=== PATIENT | female | born 1980 | race Hispanic/Latino ===

== ENCOUNTER 2022-10-18 05:30 | Observation (INO) | payer BC ==
[2022-10-14 16:25] LABS: BASOPHILS % (AUTO) 0.4 % (0.0-5.0); EOSINOPHILS % (AUTO) 0.6 % (0.0-8.0); HEMATOCRIT 38.6 % (36-48); LYMPHOCYTES % (AUTO) 22.1 % (21.0-51.0); MEAN CORPUSCULAR HEMOGLOBIN 27.2 pg (27.0-33.0); MEAN CORPUSCULAR HGB CONC 31.9 g/dL (32.0-36.0); MEAN CORPUSCULAR VOLUME 85.4 fL (79-99); MONOCYTES % (AUTO) 6.1 % (3.0-13.0); NEUTROPHILS % (AUTO) 70.5 % (40.0-77.0); PLATELET COUNT (AUTO) 296 K/uL (130-400); RED BLOOD CELL COUNT(AUTO) 4.52 MIL/uL (4.00-5.50); RED CELL DISTRIBUTION WIDTH 14.1 % (11.0-15.5); WHITE BLOOD COUNT (AUTO) 7.1 K/uL (4.8-10.8)
[2022-10-14 16:31] VITALS: BP 118/62
[2022-10-14 16:32] LABS: APPEARANCE,URINE CLOUDY (CLEAR); BILIRUBIN,URINE NEGATIVE (NEGATIVE); COLOR,URINE YELLOW (YELLOW); GLUCOSE, URINE (UA) NEGATIVE (NEGATIVE); KETONES,URINE 20 mg/dL (NEGATIVE); LEUKOCYTE ESTERASE ,URINE 250 Leu/uL (NEGATIVE); NITRATE,URINE NEGATIVE (NEGATIVE); OCCULT BLOOD,URINE NEGATIVE (NEGATIVE); PH,URINE 6.5 (5.0-8.0); PROTEIN,URINE 10 mg/dL (NEGATIVE); UROBILINOGEN,URINE 0.2 mg/dL (0.2-1.0)
[2022-10-14 16:59] LABS: BACTERIA,URINE RARE /HPF (None Seen); MUCUS,URINE MOD LPF (None Seen); SQUAMOUS EPITHELIAL CELL,UR MANY /HPF (0-2)
[2022-10-18] VITALS (24 sets, daily range): BP systolic 98–143; BP diastolic 36–90
[~2022-10-18] VITALS: Ht 154.9 cm; Wt 85.9 kg
[~2022-10-18 05:30] MED LIST: DEXMEDETOMIDINE HCL 200 MCG/2 ML VIAL IV ONE
[2022-10-18] MEDS ORDERED: LACTATED RINGERS 1000ML 1,000 ML IV ONE (05:55)
[2022-10-18] MEDS: CEFAZOLIN SODIUM 2 GM VIAL ONE ×2 (06:10→07:32)
[2022-10-18] MEDS ORDERED: MIDAZOLAM HCL 1 MG/ML 2ML VIAL ONE (06:56)
[2022-10-18] MEDS ORDERED: DEXAMETHASONE SOD PHOSPHATE 10MG/ML 1ML VIAL ONE (06:56)
[2022-10-18] MEDS ORDERED: LIDOCAINE PF 100MG/5ML (2%) SYRINGE 5ML ONE (06:56)
[2022-10-18] MEDS ORDERED: FENTANYL CITRATE PF 50 MCG/1 ML 5ML AMP IV ONE (06:57)
[2022-10-18] MEDS ORDERED: PROPOFOL 10 MG/ML 20ML VIAL IV ONE (06:57)
[2022-10-18] MEDS ORDERED: ROCURONIUM 10MG/1ML SYR 10 MG/ML ML ONE ×2 (06:57→09:01)
[2022-10-18] MEDS ORDERED: ONDANSETRON 4MG INJ ONE (06:57)
[2022-10-18] MEDS ORDERED: GLYCOPYRROLATE 1 MG/5 ML SYRINGE ONE (08:49)
[2022-10-18] MEDS ORDERED: NEOSTIGMINE 5MG/5ML SYR IV ONE (08:49)
[2022-10-18] MEDS ORDERED: MEPERIDINE-PF 25 MG/ML SYG ONE (09:44)
[2022-10-18] MEDS ORDERED: MEPERIDINE-PF 75 MG/ML SYG IM PRN (11:00)
[2022-10-18] MEDS ORDERED: PROMETHAZINE HCL 25 MG/ML 1ML AMPULE IM PRN ×2 (11:00)
[2022-10-18] MEDS ORDERED: IBUPROFEN 600 MG TABLET PO PRN (11:00)
[2022-10-18] MEDS ORDERED: ONDANSETRON 4MG INJ IVP PRN (11:00)
[2022-10-18] MEDS ORDERED: BISACODYL 10 MG SUPP.RECT RC PRN (11:00)
[2022-10-18] MEDS ORDERED: SIMETHICONE 80 MG TAB.CHEW PO PRN (11:00)
[2022-10-18] MEDS: ACETAMINOPHEN WITH CODEINE 1 TAB TAB PO PRN ×2 (11:50→19:47)
[2022-10-18] MEDS: DEXTROSE 5 %-0.45 % NACL 1,000 ML IV PRN ×2 (17:08→18:30)
[2022-10-18] MEDS: DOCUSATE SODIUM 100 MG CAP PO PRN (20:46)
[2022-10-19] MEDS ORDERED: IBUPROFEN 800 MG TAB PO PRN (01:30)
[2022-10-19] MEDS ORDERED: HYDROCODONE/ACETAMINOPHEN 5/325 MG TAB PO PRN (01:30)
[2022-10-19 04:55] VITALS: BP 114/71
[2022-10-19 07:05] LABS: HEMATOCRIT 35.7 % (36-48); MEAN CORPUSCULAR HEMOGLOBIN 27.6 pg (27.0-33.0); MEAN CORPUSCULAR HGB CONC 31.7 g/dL (32.0-36.0); MEAN CORPUSCULAR VOLUME 87.1 fL (79-99); RED BLOOD CELL COUNT(AUTO) 4.1 MIL/uL (4.00-5.50); RED CELL DISTRIBUTION WIDTH 14.5 % (11.0-15.5); WHITE BLOOD COUNT (AUTO) 13.2 K/uL (4.8-10.8)
[2022-10-19 08:00] VITALS: BP 105/73
[2022-10-19] MEDS: DOCUSATE SODIUM 100 MG CAP PO PRN (09:29)
== END 2022-10-19 12:25 | disposition home or self-care (01) ==
LOC: DAH 05:30 → WSH 05:31
PROVIDERS: ADMIT Obstetrics & Gynecology; ATTEND Obstetrics & Gynecology
DX: D25.9 Leiomyoma of uterus, unspecified (principal); Z20.822 Contact with and (suspected) exposure to COVID-19; N83.11 Corpus luteum cyst of right ovary; N85.2 Hypertrophy of uterus; N94.6 Dysmenorrhea, unspecified; N92.1 Excessive and frequent menstruation with irregular cycle; E78.5 Hyperlipidemia, unspecified; I10 Essential (primary) hypertension; Z79.899 Other long term (current) drug therapy
CPT/HCPCS: 84703; 85025; 86850 ×2; 86900 ×2; 86901 ×2; 87088; 87426; 81001; 36415 ×3; 58262; 96372; 85027; A6260; G0378 ×19; A4663; J7120 ×2; A4351; A4606; J3010; J3490 ×2; J1100; J2710; J2550; J2001; J2250; J2704; J2405; J2175 ×2; J0690; A4649; A4930; A4215; A4223; A4222; A4221; A4600